=== PATIENT | female | born 1955 | race Caucasian/White ===

== ENCOUNTER 2018-01-02 05:39 | Day surgery (SDC) | payer OTHER | END 2018-01-02 14:05 | disposition home or self-care (01) | LOC: CIR.AMB 05:39 | DX: S52.531A Colles' fracture of right radius, initial encounter for closed fracture (principal) ==

== ENCOUNTER 2018-06-19 08:13 | Day surgery (SDC) | payer OTHER | END 2018-06-19 18:00 | disposition home or self-care (01) | LOC: CIR.AMB 08:13 | DX: T84.84XA Pain due to internal orthopedic prosthetic devices, implants and grafts, initial encounter (principal); S52.591D Other fractures of lower end of right radius, subsequent encounter for closed fracture with routine healing ==